=== PATIENT | male | born 1955 | race Caucasian/White ===

== ENCOUNTER 2016-05-22 11:04 | Outpatient (CLI) | payer OTHER ==
[2016-05-22 12:10] LABS: Anion Gap 15 mmol/L (10-20); BUN (Urea Nitrogen) 11 mg/dL (8.4-25.7); Calc. Creatinine Clearance 0 mL/min (70-130); Calcium 9.8 mg/dL (7.8-10.44); Carbon Dioxide 24 mmol/L (23-31); Chloride 94 mmol/L (98-107); Estimated GFR-MDRD Greater than 90
== END 2016-05-22 11:05 | disposition home or self-care (01) ==
LOC: BURLAB 11:04
PROVIDERS: ATTEND Family Medicine
DX: E87.1 Hypo-osmolality and hyponatremia (principal)
CPT/HCPCS: 36415; 80048

== ENCOUNTER 2019-08-11 10:51 | Outpatient (CLI) | payer MEDICARE ==
--- NOTE | 2019-08-11 17:32 | RAD ---
CHEST TWO VIEWS: 08/11/19 The heart is normal in size. There is no vascular congestion or edema. There is some streaking in the right base medially that may be some minimal prominence of markings, however, I am not completely co nvinced of an infiltrate here. Old films would be useful for comparison. There are no effusions. IMPRESSION: No definite acute findings. POS: HOME
== END 2019-08-11 10:52 | disposition home or self-care (01) ==
LOC: BURRAD 10:51
PROVIDERS: ATTEND Internal Medicine Critical Care Medicine
DX: R06.00 Dyspnea, unspecified (principal)
CPT/HCPCS: 71046

== ENCOUNTER 2021-12-08 06:42 | Emergency (ER) | payer MEDICARE ==
[2021-12-08 07:34] LABS: Prothrombin Time 13.5 sec (12.0-14.7)
[2021-12-08] MEDS ORDERED: Pantoprazole 40 MG VIAL ONE (07:34)
[2021-12-08] MEDS ORDERED: Octreotide Acetate 100 MCG/ML VIAL ONE (07:34)
[2021-12-08] MEDS ORDERED: cefTRIAXone\\ROCEPHIN 1 GM VIAL ONE (07:34)
[2021-12-08 07:35] LABS: PTT 29.2 sec (22.9-36.1)
[2021-12-08 07:38] LABS: ALT (SGPT) 36 U/L (8-55); AST (SGOT) 29 U/L (5-34); Albumin 3.8 g/dL (3.4-4.8); Alkaline Phosphatase 123 U/L (40-110); Anion Gap 16 mmol/L (10-20); BUN (Urea Nitrogen) 12 mg/dL (8.4-25.7); Bilirubin, Total 0.4 mg/dL (0.2-1.2); Calc. Creatinine Clearance 0 mL/min (70-130); Calcium 9.8 mg/dL (7.8-10.44); Carbon Dioxide 23 mmol/L (23-31); Chloride 97 mmol/L (98-107); Estimated GFR 85; Globulin 2.8 g/dL (2.4-3.5); Glucose 122 mg/dL (80-115); Potassium 4.1 mmol/L (3.5-5.1); Protein, Total 6.6 g/dL (5.8-8.1); Sodium 132 mmol/L (136-145)
[2021-12-08 07:41] LABS: #Basophils 0.1 thou/uL (0.0-0.2); #Eosinphils 0.1 thou/uL (0.0-0.7); #Lymphocytes 2.4 thou/uL (1.20-3.40); #Monocytes 0.9 thou/uL (0.11-0.59); #Neutrophils 7.6 thou/uL (1.40-6.50); %Eosinophils 0.8 % (0.0-10.0); %Lymphocytes 21.7 % (21.0-51.0); %Monocytes 8.3 % (0.0-10.0); %Neutrophils 68.2 % (42.0-75.0); Hemoglobin 11.5 g/dL (14.0-18.0); Mean Corpuscular Hemoglobin 34.1 pg (27.0-31.0); Mean Corpuscular Volume 97.5 fL (78.0-98.0); Mean Platelet Volume 7.3 fL (7.4-10.4); Platelet Count 267 thou/uL (130-400); RBC Distribution Width 13.8 % (11.5-14.5); Red Blood Cell (RBC) Count 3.36 mill/uL (4.70-6.10); White Blood Cell (WBC) Count 11.1 thou/uL (4.8-10.8)
[2021-12-08 07:42] LABS: Platelet Morphology Comment Appears Adequate; RBC Morphology Normal
[2021-12-08] MEDS ORDERED: Sucralfate 1 GM TAB PO SCH (08:00)
== END 2021-12-08 15:00 | disposition short-term general hospital (02) ==
LOC: BURERS 06:42
DX: K92.2 Gastrointestinal hemorrhage, unspecified (principal); D64.9 Anemia, unspecified; I10 Essential (primary) hypertension; F17.210 Nicotine dependence, cigarettes, uncomplicated; Z79.899 Other long term (current) drug therapy
CPT/HCPCS: 80053; 82274; 85025; 85610; 85730; 86850; 86900; 86901; 93005; 96365; 96366; 96367; 96376; C9113; J0696; J2354